=== PATIENT | female | born 1980 | race Caucasian/White ===

== ENCOUNTER 2017-01-18 11:33 | Observation (INO) | payer BC, OTHER ==
[2017-01-18 14:17] LABS: % IMMATURE GRANULYOCYTES 0.4 % (0.0-1.1); ABSOLUTE IMMATURE GRANULOCYTES 0.04 10^3/uL (0.00-0.10); ADD DIFF? NO; ADD MORPH? NO; ADD SCAN? NO; ATYPICAL LYMPHOCYTE FLAG 0 (0-99); FRAGMENT RBC FLAG 0 (0-99); HEMATOCRIT 42.3 % (38.0-47.0); HEMOGLOBIN 14.9 g/dL (12.6-16.3); LEFT SHIFT FLG 0 (0-99); LIPEMIA HEMOLYSIS FLAG 90 (0-99); MEAN CELL HEMOGLOBIN 32.3 pg (27.9-34.1); MEAN CELL HEMOGLOBIN CONCENTR. 35.2 g/dL (32.4-36.7); MEAN CELL VOLUME 91.6 fL (81.5-99.8); PLATELET CLUMPS FLAG 0 (0-99); PLATELET COUNT 172 10^3/uL (150-400); RED BLOOD CELL COUNT 4.62 10^6/uL (4.18-5.33)
[2017-01-18 14:26] LABS: ANION GAP 12 mEq/L (8-16); CALCIUM 9.1 mg/dL (8.5-10.4); CARBON DIOXIDE 27 mEq/l (22-31); CHLORIDE 101 mEq/L (97-110); CREATININE 0.8 mg/dL (0.6-1.0); GLOMERULAR FILTRATION RATE > 60; GLUCOSE 94 mg/dL (70-100); POTASSIUM 3.7 mEq/L (3.5-5.2); SODIUM 140 mEq/L (134-144)
[2017-01-18 14:48] LABS: COLOR YELLOW; LEUKOCYTE ESTERASE,URINE NEGATIVE (NEGATIVE); NITRITE,URINE NEGATIVE (NEGATIVE)
[2017-01-18] MEDS ORDERED: IOPAMIDOL (ISOVUE-300) 100 ML BTL ONE (14:53)
[2017-01-18 14:56] LABS: WBC,URINE NONE SEEN /hpf (0-3)
[2017-01-18] MEDS ORDERED: ERTAPENEM 1 GM VIAL IVP ONE (15:52)
--- NOTE | 2017-01-18 15:59 | EDPHY ---
H & P Smoking Status: Never smoked Time Seen by Provider: 01/18/17 13:40 HPI/ROS: CHIEF COMPLAINT: Abdominal pain HISTORY OF PRESENT ILLNESS: 36-year-old female presents to the emergency department by private vehicle complaining of lower abdominal pain that began yesterday around noon. Patient states that it has been getting increasingly worse. No nausea or vomiting. No chest pain or difficulty breathing. No diarrhea. No reported trauma. She has never had pain like this in the past. She does have an IUD and has history of irregular menstrual periods. REVIEW OF SYSTEMS: Constitutional: No fever, no chills. Eyes: No double or blurry vision. ENT: No sore throat. Respiratory: No cough, no shortness of breath. Cardiac: No chest pain. Gastrointestinal: Abdominal Pain Genitourinary: No dysuria. Musculoskeletal: No neck or back pain. Skin: No rashes. Neurological: No headache. (Damon Noland) Past Medical/Surgical History: IUD (Damon Noland) Social History: (Damon Noland) Physical Exam: General Appearance: Alert, no distress. Afebrile. Eyes: Pupils equal and round. Extraocular motions are all intact. ENT: Mouth: Mucous membranes moist. Respiratory: No wheezing, rhonchi, or rales, lungs are clear to auscultation. Cardiovascular: Regular rate and rhythm. Gastrointestinal: Abdomen is soft. She has tenderness with palpation in the right lower quadrant, suprapubic area and slightly in the left lower quadrant. She has positive rebound tenderness. No guarding. No palpable masses. No CVA tenderness bilaterally. Neurological: Alert and oriented x 3, cranial nerves II through XII grossly intact Skin: Warm and dry, no rashes. Musculoskeletal: Nontender to palpate along the cervical, thoracic or lumbar spine. Neck is supple. Extremities: Full range of motion and no peripheral edema. Psychiatric: Patient is oriented X 3, there is no agitation. (Damon Noland) Constitutional: Initial Vital Signs Temperature (C) 37.2 C 01/18/17 11:51 Heart Rate 66 01/18/17 11:51 Respiratory Rate 18 01/18/17 11:51 Blood Pressure 108/76 01/18/17 11:51 O2 Sat (%) 98 01/18/17 11:51 O2 Delivery Mode Room Air Allergies/Adverse Reactions: No Known Allergies Allergy (Verified 01/18/17 11:51) Home Medications: Medication Instructions Recorded Levothyroxine [Synthroid 112 mcg 112 mcg PO DAILY06 04/29/13 (RX)] Medical Decision Making - Diagnostics Imaging: Discussed imaging studies w/ last scourer Radiologist - Diagnostics Imaging Results: Imaging Impressions Abdomen CT 01/18/17 14:47 Impression: 1. Suspect appendicitis versus Meckel's diverticulitis. 2. Possible left upper quadrant internal small bowel hernia versus normal variant. 3. Constipation. Results called and discussed with DAMON NOLAND, at 01/18/2017 15:29 General information for patients regarding this examination can be found at [email or web address]. If you have questions or comments about this report, please contact me at (hospital) or [phone] (cell). ED Course/Re-evaluation: 36-year-old female presents to the emergency department with abdominal pain. She had positive rebound tenderness. I was concerned about possible acute appendicitis. She was kept NPO. I discussed the pros and cons of CT imaging of her abdomen and pelvis including radiation exposure and the patient agrees with CT scan. CT imaging of the abdomen and pelvis reveals acute appendicitis measuring 14 mm. No evidence of perforation. I spoke with the on-call general surgeon, Dr. Max Barrow, who will come to evaluate the patient. Patient was given 1 g of Invanz IV. She still declined pain medication. (Damon Noland) I did not see this patient while she was in the emergency department. However her care was discussed with the PA while the patient was in the department. I agree with treatment plan and management. I a.m. the secondary supervising physician (Domingo Spencer) Differential Diagnosis: Including but not limited to acute appendicitis, urinary tract infection, pyelonephritis, kidney stone, ovarian cyst, ovarian torsion. (Damon Noland) - Data Points Laboratory Results: Laboratory Results 01/18/17 13:38 01/18/17 13:38 01/18/17 01/18/17 01/18/17 14:35 13:38 13:38 WBC RBC Hgb Hct MCV MCH MCHC RDW Plt Count MPV Neut % (Auto) Lymph % (Auto) Dent % (Auto) Eos % (Auto) Baso % (Auto) Nucleat RBC Rel Count Absolute Neuts (auto) Absolute Lymphs (auto) Absolute Monos (auto) Absolute Eos (auto) Absolute Basos (auto) Absolute Nucleated RBC Immature Gran % Immature Gran # Sodium 140 mEq/L mEq/L (134-144) Potassium 3.7 mEq/L mEq/L (3.5-5.2) Chloride 101 mEq/L mEq/L (97-110) Carbon Dioxide 27 mEq/l mEq/l (22-31) Anion Gap 12 mEq/L mEq/L (8-16) BUN 12 mg/dL mg/dL (7-23) Creatinine 0.8 mg/dL mg/dL (0.6-1.0) Estimated GFR > 60 Glucose 94 mg/dL mg/dL (70-100) Calcium 9.1 mg/dL mg/dL (8.5-10.4) Beta HCG, Qual NEGATIVE Urine Color YELLOW Urine Appearance CLEAR Urine pH 7.0 (5.0-7.5) Ur Specific Partridge 1.008 (1.002-1.030) Urine Protein NEGATIVE (NEGATIVE) Urine Ketones NEGATIVE (NEGATIVE) Urine Blood NEGATIVE (NEGATIVE) Urine Nitrate NEGATIVE (NEGATIVE) Urine Bilirubin NEGATIVE (NEGATIVE) Urine Urobilinogen NEGATIVE EU EU (0.2-1.0) Ur Leukocyte Esterase NEGATIVE (NEGATIVE) Urine RBC 3-5 /hpf H /hpf (0-3) Urine WBC NONE SEEN /hpf /hpf (0-3) Ur Epithelial Cells TRACE /lpf /lpf (NONE-1+) Urine Glucose NEGATIVE (NEGATIVE) 01/18/17 13:38 WBC 9.07 10^3/uL 10^3/uL (3.80-9.50) RBC 4.62 10^6/uL 10^6/uL (4.18-5.33) Hgb 14.9 g/dL g/dL (12.6-16.3) Hct 42.3 % % (38.0-47.0) MCV 91.6 fL fL (81.5-99.8) MCH 32.3 pg pg (27.9-34.1) MCHC 35.2 g/dL g/dL (32.4-36.7) RDW 12.0 % % (11.5-15.2) Plt Count 172 10^3/uL 10^3/uL (150-400) MPV 11.0 fL fL (8.7-11.7) Neut % (Auto) 75.4 % H % (39.3-74.2) Lymph % (Auto) 15.1 % % (15.0-45.0) Dent % (Auto) 8.0 % % (4.5-13.0) Eos % (Auto) 0.8 % % (0.6-7.6) Baso % (Auto) 0.3 % % (0.3-1.7) Nucleat RBC Rel Count 0.0 % % (0.0-0.2) Absolute Neuts (auto) 6.83 10^3/uL H 10^3/uL (1.70-6.50) Absolute Lymphs (auto) 1.37 10^3/uL 10^3/uL (1.00-3.00) Absolute Monos (auto) 0.73 10^3/uL 10^3/uL (0.30-0.80) Absolute Eos (auto) 0.07 10^3/uL 10^3/uL (0.03-0.40) Absolute Basos (auto) 0.03 10^3/uL 10^3/uL (0.02-0.10) Absolute Nucleated RBC 0.00 10^3/uL 10^3/uL (0-0.01) Immature Gran % 0.4 % % (0.0-1.1) Immature Gran # 0.04 10^3/uL 10^3/uL (0.00-0.10) Sodium Potassium Chloride Carbon Dioxide Anion Gap BUN Creatinine Estimated GFR Glucose Calcium Beta HCG, Qual Urine Color Urine Appearance Urine pH Ur Specific Partridge Urine Protein Urine Ketones Urine Blood Urine Nitrate Urine Bilirubin Urine Urobilinogen Ur Leukocyte Esterase Urine RBC Urine WBC Ur Epithelial Cells Urine Glucose Medications Given: Discontinued Medications Bupivacaine HCl (Sensorcaine 0.5% Vial) Confirm Administered Dose 30 ml .ROUTE .STK-MED ONE Stop: 01/18/17 16:30 Last Admin: 01/18/17 18:16 Dose: 30 ml Ertapenem (Invanz) 1 gm IVP EDNOW ONE PRN Reason: Protocol Stop: 01/18/17 15:53 Last Admin: 01/18/17 16:02 Dose: 1 gm Midazolam HCl (Versed) 2 mg IVP ONCALL ONE Stop: 01/18/17 16:53 Last Admin: 01/18/17 17:29 Dose: 2 mg Departure - Departure Disposition: To OP Cath/Surgery Clinical Impression: Acute appendicitis Qualifiers: Acute appendicitis type: with generalized peritonitis Qualified Code(s): K35.2 - Acute appendicitis with generalized peritonitis Condition: Good
[2017-01-18] MEDS ORDERED: BUPIVACAINE 0.5% 30 ML SDV ONE (16:29)
[2017-01-18] MEDS ORDERED: LR 1,000 ML IV ONE (16:43)
[2017-01-18] MEDS ORDERED: MIDAZOLAM 2 MG/2 ML VIAL IVP ONE (16:52)
--- NOTE | 2017-01-18 16:54 | PDANEPAE ---
ANE Past Medical History - Cardiovascular History Hx Hypertension: No Hx Arrhythmias: No Hx Chest Pain: No Hx Coronary Artery / Peripheral Vascular Disease: No Hx CHF / Valvular Disease: No Hx Palpitations: No - Pulmonary History Hx COPD: No Hx Asthma/Reactive Airway Disease: No Hx Recent Upper Respiratory Infection: No Hx Oxygen in Use at Home: No Hx Sleep Apnea: No - Endocrine History Hx Diabetes: No Hypothyroid: Yes Hyperthyroid: No Obesity: no - Chronic Pain History Chronic Pain: No ANE Review of Systems Review of Systems: - Exercise capacity Exercise capacity: >=4 METS ANE Patient History - Allergies Allergies/Adverse Reactions: No Known Allergies Allergy (Verified 01/18/17 11:51) - Home Medications Home Medications: Levothyroxine [Synthroid 112 mcg (RX)] 112 mcg PO DAILY06 04/29/13 [Last Taken 04/29/13] - NPO status NPO Since - Liquids (Date): 01/18/17 NPO Since - Liquids (Time): 10:30 NPO Since - Solids (Date): 01/18/17 NPO Since - Solids (Time): 09:30 - Anes Hx Anes Hx: no prior problems - Smoking Hx Smoking Status: Never smoked ANE Labs/Vital Signs - Labs Result Diagrams: 01/18/17 13:38 01/18/17 13:38 - Vital Signs Blood Pressure: 127/80 Heart Rate: 58 Respiratory Rate: 18 O2 Sat (%): 100 Height: 172.72 cm Weight: 60.328 kg ANE Physical Exam - Airway Mallampati Score: Class 1 Mouth exam: normal dental/mouth exam - Pulmonary Pulmonary: no respiratory distress, no rales or rhonchi, clear to auscultation - Cardiovascular Cardiovascular: regular rate and rhythym, no murmur, rub, or gallop - ASA Status ASA Status: II, E ANE Anesthesia Plan Anesthesia Plan: general endotracheal anesthesia
[2017-01-18] MEDS ORDERED: fentaNYL 100 MCG/2 ML INJ ONE (16:59)
[2017-01-18] MEDS ORDERED: PROPOFOL 200 MG/20 ML VIAL ONE (16:59)
[2017-01-18] MEDS ORDERED: KETOROLAC 30 MG/1 ML SDV ONE (17:45)
[2017-01-18] MEDS ORDERED: ONDANSETRON 4 MG/2 ML VIAL ONE (17:45)
[2017-01-18] MEDS ORDERED: SUGAMMADEX SODIUM 200 MG/2 ML VIAL IVP ONE (17:45)
[2017-01-18] MEDS ORDERED: DEXAMETHASONE 4 MG/ML VIAL ONE ×2 (17:46)
[2017-01-18] MEDS ORDERED: LIDOCAINE 2% 5 ML SDV ONE (17:46)
--- NOTE | 2017-01-18 17:48 | PDGENHP ---
History & Physical Chief Complaint: RLQ PAIN History of Present Illness: FEMALE WITH24 HRS OF RLQ PAIN/ CT SHOWS ENLARED APPE/ WBC OK. ADMIT FOR LAP APPE/ PAIN MUCH WORSE WITH MOVEMENT Pertinent Past, Social, Family History: PMH: HYPOTHYROIDISM/ COLLAR BONE ORIF. NKA. MEDS: SYNTHROID. FAM HX: NONCONTRIBUTORY. ROS: -10 POINT REVIEW Relevant Physical Exam: GEN: HEALTHY 36 FEMALE, AFEBRILE. HEENT: LESLIE, SUPPLE , NO ADENOPATHY, NONICTERIC. CHEST CLEAR. COR: RR, NO MURMURS. ABD: SOFT BUT TENDER RLQ WITH GUARDING AND REBOUND, + BS, NO HERNIAS. NEURO: SYMETRIC AND PHYSIOLOGIC. PSYCH OK. SKIN: NO RASHES OR LESIONS Cardiorespiratory Assessment: IMP: ACUTE APPE, RISKS AND OPTIONS FULLY DISCUSSED. PLAN LAP APPE
[2017-01-18] MEDS ORDERED: LR 500 ML IV PRN (17:49)
[2017-01-18] MEDS ORDERED: PROMETHAZINE HCL 25 MG/ML INJ IVP PRN (17:49)
[2017-01-18] MEDS ORDERED: OXYCODONE/APAP 5/325 TAB PO PRN ×2 (17:49→17:51)
[2017-01-18] MEDS ORDERED: ONDANSETRON 4 MG/2 ML VIAL IVP PRN ×2 (17:49→17:51)
[2017-01-18] MEDS ORDERED: MEPERIDINE 25 MG/ML SYR IVP PRN (17:49)
[2017-01-18] MEDS ORDERED: fentaNYL 100 MCG/2 ML INJ IVP PRN (17:49)
[2017-01-18] MEDS ORDERED: NALOXONE HCL 0.4 MG/ML INJ IVP PRN (17:49)
--- NOTE | 2017-01-18 17:50 | POSTOPPROG ---
Post Op Note Date of Operation: 01/18/17 Surgeon: Max Barrow Anesthesiologist: SAL Anesthesia: GET(General Endotracheal) Pre-op Diagnosis: ACUTE APPE Post-op Diagnosis: SAME Indication: PAIN Procedure: LAP APPE Findings: ACUTE APPENDICITIS Inf/Abcess present in the surg proc area at time of surgery?: Yes Depth: Organ Space EBL: Minimal Complications: 0 Specimen(s): APPENDIX
[2017-01-18] MEDS ORDERED: HYDROmorphONE/DILAUDID 1 MG/ML INJ IVP PRN (17:51)
[2017-01-18] MEDS ORDERED: D5W 1/2 NS W/ 20 KCl/L 1,000 ML IV SCH (18:00)
--- NOTE | 2017-01-18 18:36 | POSTANESTH ---
Post Anesthetic Evaluation Cardiovascular Status: Normal, Stable, Similar to Pre-Op Cond Respiratory Status: Normal, Stable, Similar to Pre-op Cond. Level of Consciousness/Mental Status: Can Participate in Eval, Moderately Sleepy Pain Control: Adequate, Prn Tx Ordered Nausea/Vomiting Control: Adequate, Prn Tx Ordered Complications Possibly Related to Anesthesia: None Noted
[2017-01-18] MEDS: KETOROLAC 15 MG/1 ML SDV IVP SCH (20:05)
--- NOTE | 2017-01-19 04:34 | GOP ---
[f rep st] OPERATIVE REPORT DATE OF OPERATION: 01/18/2017 SURGEON: Max Barrow MD PREOPERATIVE DIAGNOSIS: Acute appendicitis. POSTOPERATIVE DIAGNOSIS: Acute appendicitis. PROCEDURE PERFORMED: Laparoscopic appendectomy. FINDINGS: The patient had a markedly swollen and indurated retro ileal appendix without perforation. ESTIMATED BLOOD LOSS: Negligible. DESCRIPTION OF PROCEDURE: The patient was taken to the operating room and received satisfactory gene ral endotracheal anesthesia by Dr. Delvalle. She was placed in the supine position and prepped and drap ed in the usual sterile fashion. A periumbilical incision was made and a Veress needle was inserted. Pneumoperitoneum was established. Trocar and laparoscope were introduced with good visualization o btained. Two other trocars were placed in the lower abdomen under direct vision. The appendix was f julio césar up from behind the ileum. The mesoappendix was divided with the Harmonic Scalpel. The appendix was skeletonized and then divided with Endo-AASHISH stapler and placed in a specimen bag and extracted t hrough the upper midline port site. Hemostasis was assured. There was no significant fluid leakage. Trocars were removed under direct vision and trocar sites were closed with 0 Vicryl for the fascia and 4-0 Monocryl subcuticular stitch for the skin. All layers were infiltrated with 0.5% Marcaine. DISPOSITION: She was taken to the recovery room in good condition. COMPLICATIONS: None. /[id number]/MODL
[2017-01-19] MEDS: KETOROLAC 15 MG/1 ML SDV IVP SCH ×2 (04:57→04:58)
--- NOTE | 2017-01-19 07:21 | SOAPPROG ---
SOAP Progress Note Assessment/Plan: Assessment: DOING GREAT Plan:HOME 01/19/17 07:21 Objective: Vital Signs Temp Pulse Resp BP Pulse Ox 36.6 C 38 L 14 96/56 L 97 01/19/17 04:03 01/19/17 04:03 01/19/17 04:03 01/19/17 04:59 01/19/17 04:03 01/18/17 01/19/17 01/20/17 05:59 05:59 05:59 Intake Total 3250 Output Total 735 Balance 2515 ICD10 Worksheet Patient Problems: Problems Problem Status Onset Acute appendicitis Acute Abrasions of multiple sites Acute Closed head injury with concussion Acute Fracture, clavicle Acute
--- NOTE | 2017-01-19 10:10 | ASMTCMCOM ---
CM Note CM Note Notes: Pt admitted for appy. She will likely DC with no needs. CM available if needs change. Date Signed: 01/19/2017 10:09 AM Electronically Signed By:Fiorella Gomes LCSW
--- NOTE | 2017-01-19 10:29 | SOAPPROG ---
SOAP Progress Note Assessment/Plan: Assessment/Plan: 36 Y F doing well p lap appy, POD#1. D/c to home. Pain controlled. No N/V. No fever. Eating. alert, nad ncat,mmm ctab rrr abd soft, inc cdi 01/19/17 10:28 Objective: Vital Signs Temp Pulse Resp BP Pulse Ox 36.4 C 48 L 16 94/58 L 100 01/19/17 07:30 01/19/17 07:30 01/19/17 07:30 01/19/17 07:30 01/19/17 07:30 01/18/17 01/19/17 01/20/17 05:59 05:59 05:59 Intake Total 3250 Output Total 763 800 Balance 2515 -800 ICD10 Worksheet Patient Problems: Problems Problem Status Onset Acute appendicitis Acute Abrasions of multiple sites Acute Closed head injury with concussion Acute Fracture, clavicle Acute
--- NOTE | 2017-01-19 10:47 | ASDISCHSUM ---
Discharge Information Plan Status: Medically Cleared to Leave: Discharge Date: CM D/C Disposition: ADT D/C Disposition:Home, Routine, Self-Care Projected Discharge Date: Transportation at D/C: Discharge Delay Reason: Follow-Up Date: Discharge Slot: Final Diagnosis: Placement Information Patient Contact Information Contact Name:BRIELLE Relationship:Father Address: Work Phone: City: [facility] Phone: State/[place] [employer] Code: Email: Financial Information Financial Class:HMO and PPO Plans Primary Plan Desc:[employer] Primary Plan Number:[id number] Secondary Plan Desc: Secondary Plan Number: Assessment Information [facility] CM Progress Note CM Note CM Note Notes: Pt admitted for appy. She will likely DC with no needs. CM available if needs change. Date Signed: 01/19/2017 10:09 AM Electronically Signed By:Fiorella Gomes LCSW Intervention Information
[2017-01-19 11:40] VITALS: BP 111/62; PULSE 50; RESP 15; TEMP 97.6; O2SAT 98
== END 2017-01-19 12:15 | disposition home or self-care (01) ==
LOC: F1N 17:02
PROVIDERS: ADMIT Surgery; ATTEND Surgery
PROC: 0DTJ4ZZ Resection of Appendix, Percutaneous Endoscopic Approach (ICD-10-PCS; principal; 2017-01-18 17:30)
DX: K35.2 Acute appendicitis with generalized peritonitis (principal)
CPT/HCPCS: 44970; 74177; 96374; 96375; 99285; G0378; J1100; J1170; J1335; J1885; J2250; J2405; J2704; J3010; Q9967

== ENCOUNTER → 2017-08-15 | Outpatient (CLI) | payer OTHER ==
[~2017-08-15] MED LIST: GADOBUTROL 10 ML VIAL IVP ONE
== END ==
LOC: FIMAGING 06:18
PROVIDERS: ATTEND Obstetrics & Gynecology
DX: M26.603 Bilateral temporomandibular joint disorder, unspecified (principal); Z87.828 Personal history of other (healed) physical injury and trauma
CPT/HCPCS: A9585